=== PATIENT | female | born 1940 | race African-American/Black ===

== ENCOUNTER 2017-06-22 20:24 | Emergency (ER) | payer BC, MEDICARE ==
[~2017-06-22] VITALS: Ht 162.6 cm; Wt 50.0 kg
[2017-06-22] MEDS ORDERED: ACETAMINOPHEN 325MG TABLET PO ONE (21:15)
[2017-06-22 23:01] VITALS: BP 123/70
== END 2017-06-22 23:50 | disposition home or self-care (01) ==
LOC: ER 22:07
DX: M25.571 Pain in right ankle and joints of right foot (principal); M19.071 Primary osteoarthritis, right ankle and foot; M85.80 Other specified disorders of bone density and structure, unspecified site; M20.11 Hallux valgus (acquired), right foot; I69.322 Dysarthria following cerebral infarction
CPT/HCPCS: 73590; 73610; 73630; 99284